=== PATIENT | male | born 1960 | race Caucasian/White ===

== ENCOUNTER 2022-08-06 09:20 | Outpatient (CLI) | payer BC | END 2022-08-06 09:21 | disposition home or self-care (01) | LOC: BICMAMMO 09:20 | PROVIDERS: ATTEND Family Medicine | DX: N63.11 Unspecified lump in the right breast, upper outer quadrant (principal) | CPT/HCPCS: 77066; G0279 ==

== ENCOUNTER 2023-01-30 20:55 | Emergency (ER) | payer BC ==
[2023-01-30 21:44] LABS: #Basophils 0.1 thou/uL (0.0-0.2); #Eosinphils 0.4 thou/uL (0.0-0.7); #Monocytes 0.7 thou/uL (0.11-0.59); #Neutrophils 8.5 thou/uL (1.40-6.50); %Basophils 0.4 % (0.0-1.0); %Eosinophils 3.9 % (0.0-10.0); %Lymphocytes 14.9 % (21.0-51.0); %Monocytes 5.8 % (0.0-10.0); %Neutrophils 74.6 % (42.0-75.0); Hematocrit 41.7 % (42.0-52.0); Hemoglobin 13.5 g/dL (14.0-18.0); Mean Corpuscular HGB CONC 32.4 g/dL (32.0-36.0); Mean Corpuscular Hemoglobin 27.3 pg (27.0-31.0); Mean Corpuscular Volume 84.2 fl (78.0-98.0); Mean Platelet Volume 10.7 fL (7.4-10.4); Platelet Count 250 10x3/uL (130-400); RBC Distribution Width 14.6 % (11.5-14.5); Red Blood Cell (RBC) Count 4.95 mill/uL (4.70-6.10); White Blood Cell (WBC) Count 11.4 10x3/uL (4.8-10.8)
[2023-01-30 22:03] LABS: SARS-CoV-2 NAA Rapid Test Not Detected (NotDetected)
[2023-01-30 22:12] LABS: ALT (SGPT) 48 U/L (8-55); AST (SGOT) 24 U/L (5-34); Alkaline Phosphatase 75 U/L (40-110); Anion Gap 13 mmol/L (10-20); BUN (Urea Nitrogen) 16 mg/dL (8.4-25.7); Calc. Creatinine Clearance 0 mL/min (70-130); Calcium 9.4 mg/dL (7.8-10.44); Carbon Dioxide 25 mmol/L (23-31); Chloride 103 mmol/L (98-107); Estimated GFR 78; Globulin 2.9 g/dL (2.4-3.5); Glucose 207 mg/dL (80-115); Lipase 50 U/L (8-78); Potassium 3.9 mmol/L (3.5-5.1); Protein, Total 6.9 g/dL (5.8-8.1); Sodium 137 mmol/L (136-145)
[2023-01-30 22:37] LABS: Bacteria/HPF None Seen HPF (None Seen); Bilirubin Negative (Negative); Blood, Urine Negative (Negative); CAUTI Indications for Culture Fever or rigors; Clarity Clear (Clear); Glucose, Urine (Dipstick) Greater than 1000 mg/dL (Negative); Ketone, Urine Trace mg/dL (Negative); Leukocyte Negative Leu/uL (Negative); Nitrite Negative (Negative); Protein, Urine (Dipstick) Negative (Neg-Trace); RBC/HPF 0-3 HPF (0-3); Specific Gravity, Urine 1.033 (1.002-1.036); Squamous Epithelial 0-3 HPF (0-3); Urobilinogen Normal mg/dL (Less than 2); WBC/HPF 0-3 HPF (0-3)
[2023-01-30 22:41] LABS: Urine Culture Reflex No No
== END 2023-01-30 23:19 | disposition home or self-care (01) ==
LOC: ERS 20:55
DX: B37.9 Candidiasis, unspecified (principal); R50.9 Fever, unspecified; E11.9 Type 2 diabetes mellitus without complications; I10 Essential (primary) hypertension; Z20.822 Contact with and (suspected) exposure to COVID-19
CPT/HCPCS: 36415; 80053; 81001; 83605; 83690; 85025; 99283

== ENCOUNTER 2024-11-17 23:22 | Inpatient (IN) | payer BC ==
[2024-11-18] MEDS ORDERED: Ketorolac Tromethamine 30 MG (1 mL) VIAL ONE ×2 (01:20→03:29)
[2024-11-18 01:26] LABS: #Basophils 0.05 10x3/uL (0.0-0.2); #Eosinophils 0.55 10x3/uL (0.0-0.7); #Monocytes 0.60 10x3/uL (0.11-0.59); #Neutrophils 4.75 10x3/uL (1.40-6.50); %Basophils 0.6 % (0.0-1.0); %Eosinophils 6.9 % (0.0-10.0); %Lymphocytes 24.8 % (21.0-51.0); %Monocytes 7.5 % (0.0-10.0); %Neutrophils 59.8 % (42.0-75.0); Hematocrit 44.0 % (42.0-52.0); Hemoglobin 13.8 g/dL (14.0-18.0); Mean Corpuscular Hemoglobin 25.8 pg (27.0-31.0); Mean Corpuscular Volume 82.2 fL (78.0-98.0); Platelet Count 260 10x3/uL (130-400); Red Blood Cell (RBC) Count 5.35 mill/uL (4.70-6.10); White Blood Cell (WBC) Count 7.95 10x3/uL (4.8-10.8)
[2024-11-18 01:43] LABS: ALT (SGPT) 62 U/L (Less than 45); AST (SGOT) 39 U/L (11-34); Albumin 3.9 g/dL (3.1-4.5); Alkaline Phosphatase 88 U/L (40-110); Anion Gap 17 mmol/L (10-20); BUN (Urea Nitrogen) 16 mg/dL (8.4-25.7); Bilirubin, Total 0.9 mg/dL (0.3-1.2); Calc. Creatinine Clearance 0 mL/min (70-130); Calcium 9.7 mg/dL (7.8-10.44); Carbon Dioxide 28 mmol/L (23-31); Chloride 96 mmol/L (98-107); Globulin 3.5 g/dL (2.4-3.5); Glucose 148 mg/dL (80-115); Lipase 22 U/L (8-78); Potassium 3.7 mmol/L (3.5-5.1); Sodium 137 mmol/L (136-145)
[2024-11-18] MEDS ORDERED: Dextrose 50% Abboject 50 ML SYRINGE SLOW IVP PRN (05:26)
[2024-11-18] MEDS ORDERED: Acetaminophen 325 MG TAB PO PRN (05:26)
[2024-11-18] MEDS ORDERED: Ondansetron PF 4 MG/2 ML Vial IVP PRN (05:26)
[2024-11-18] MEDS ORDERED: Glucagon 1 MG/ML KIT IM PRN (05:26)
[2024-11-18 09:08] VITALS: BMI 53.9
[2024-11-18] MEDS ORDERED: guaiFENesin/Codeine 200 mg/20 mg 10 ml Cup PO PRN (09:09)
[2024-11-18] MEDS: Pantoprazole 40 MG DR.TAB PO SCH (09:51)
[2024-11-18] MEDS: Metoprolol Succinate XL 50 MG ER.TAB PO SCH (09:51)
[2024-11-18] MEDS: metFORMIN 500 MG TAB PO SCH ×2 (09:51→17:04)
[2024-11-18] MEDS: Dapagliflozin Propanediol 10 MG TAB PO SCH (09:51)
[2024-11-18] MEDS: Methocarbamol 500 MG TAB PO SCH (09:51)
[2024-11-18] MEDS: Benzonatate 100 MG CAP PO SCH ×2 (09:52→10:52)
[2024-11-18] MEDS ORDERED: Iopamidol-370 76% 500 ML MDV (1 ML CHARGE) ONE (13:14)
[2024-11-18] MEDS: Acetaminophen 325 MG TAB PO SCH (17:05)
[2024-11-18] MEDS: Enoxaparin 60 MG (0.6 mL) SYRINGE SC SCH (20:22)
[2024-11-18] MEDS: Rosuvastatin 10 MG TAB PO SCH (20:22)
[2024-11-19 05:01] LABS: #Basophils 0.05 10x3/uL (0.0-0.2); #Eosinophils 0.41 10x3/uL (0.0-0.7); #Monocytes 0.46 10x3/uL (0.11-0.59); #Neutrophils 3.97 10x3/uL (1.40-6.50); %Basophils 0.8 % (0.0-1.0); %Eosinophils 6.5 % (0.0-10.0); %Lymphocytes 21.8 % (21.0-51.0); %Monocytes 7.3 % (0.0-10.0); %Neutrophils 63.3 % (42.0-75.0); Hematocrit 40.3 % (42.0-52.0); Hemoglobin 12.1 g/dL (14.0-18.0); Mean Corpuscular Hemoglobin 25.2 pg (27.0-31.0); Mean Corpuscular Volume 84.0 fL (78.0-98.0); Platelet Count 232 10x3/uL (130-400); Red Blood Cell (RBC) Count 4.80 mill/uL (4.70-6.10); White Blood Cell (WBC) Count 6.28 10x3/uL (4.8-10.8)
[2024-11-19 05:48] LABS: ALT (SGPT) 47 U/L (Less than 45); AST (SGOT) 22 U/L (11-34); Albumin 3.1 g/dL (3.1-4.5); Alkaline Phosphatase 72 U/L (40-110); Anion Gap 14 mmol/L (10-20); BUN (Urea Nitrogen) 15 mg/dL (8.4-25.7); Bilirubin, Total 0.5 mg/dL (0.3-1.2); Calc. Creatinine Clearance 274 mL/min (70-130); Calcium 8.6 mg/dL (7.8-10.44); Carbon Dioxide 22 mmol/L (23-31); Chloride 105 mmol/L (98-107); Globulin 2.8 g/dL (2.4-3.5); Glucose 164 mg/dL (80-115); Potassium 3.8 mmol/L (3.5-5.1); Sodium 137 mmol/L (136-145)
[2024-11-19 07:45] VITALS: BP 125/77; TEMP 97.9
== END 2024-11-19 12:49 | disposition home or self-care (01) | DRG 563 ==
LOC: ERS 23:22 → SURG A 11-18 05:34 → INTOOBSV 11-18 05:34 → OBSVTOIN 11-19 10:23
PROVIDERS: ADMIT Surgery Trauma Surgery; ATTEND Surgery Trauma Surgery
PROC: 5A09357 Assistance with Respiratory Ventilation, Less than 24 Consecutive Hours, Continuous Positive Airway Pressure (ICD-10-PCS; principal; 2024-11-19)
DX: S39.012A Strain of muscle, fascia and tendon of lower back, initial encounter (principal); R07.81 Pleurodynia; I10 Essential (primary) hypertension; E11.9 Type 2 diabetes mellitus without complications; Z90.13 Acquired absence of bilateral breasts and nipples; E66.01 Morbid (severe) obesity due to excess calories; K82.8 Other specified diseases of gallbladder; Z79.899 Other long term (current) drug therapy; Z79.4 Long term (current) use of insulin; R05.9 Cough, unspecified; E78.00 Pure hypercholesterolemia, unspecified; X58.XXXA Exposure to other specified factors, initial encounter
CPT/HCPCS: 36415; 36416; 71045; 71275; 74177; 76705; 80053; 83605; 83690; 83880; 85025; 93005; 93010; 96361; 96372; 96375; 96376; G0378; J1650; J1885; J2543; J7030; Q9967

== ENCOUNTER 2024-12-17 09:10 | Inpatient (IN) | payer BC ==
[2024-12-17] MEDS ORDERED: Ketorolac Tromethamine 30 MG (1 mL) VIAL ONE (09:48)
[2024-12-17] MEDS ORDERED: Ondansetron PF 4 MG/2 ML Vial IVP PRN (11:37)
[2024-12-17] MEDS ORDERED: hydrALAZINE 20 MG/ML VIAL SLOW IVP PRN (11:37)
[2024-12-17] MEDS ORDERED: Rib Fracture Protocol PO PRN (11:45)
[2024-12-17] MEDS ORDERED: Dextrose 50% Abboject 50 ML SYRINGE SLOW IVP PRN (12:25)
[2024-12-17] MEDS ORDERED: Glucagon 1 MG/ML KIT IM PRN (12:25)
[2024-12-17 12:29] LABS: Magnesium 1.7 mg/dL (1.6-2.6)
[2024-12-17] MEDS ORDERED: TETANUS AND DIPHTHERIA TOX/PF 0.5 ML DISP.SYRIN IM SCH (12:45)
[2024-12-17] MEDS: Methocarbamol 500 MG TAB PO SCH ×2 (13:28→20:32)
[2024-12-17] MEDS ORDERED: Acetaminophen 325 MG TAB PO SCH (14:00)
[2024-12-17 14:27] VITALS: BMI 53.9
[2024-12-17] MEDS: TETANUS AND DIPHTHERIA TOX/PF 0.5 ML DISP.SYRIN IM SCH (15:21)
[2024-12-17] MEDS: TETANUS, DIPHTHERIA TOX,ADULT (TDVAX) 0.5 ML VIAL IM ONE (15:21)
[2024-12-17] MEDS ORDERED: Ibuprofen 200 MG TAB ONE (15:23)
[2024-12-17] MEDS ORDERED: Gabapentin 300 MG CAP ONE (15:23)
[2024-12-17] MEDS: Ibuprofen 200 MG TAB PO SCH (15:24)
[2024-12-17] MEDS: Gabapentin 300 MG CAP PO SCH (15:26)
[2024-12-17] MEDS: Acetaminophen 500 MG TAB PO SCH (17:43)
[2024-12-17] MEDS: Magnesium Oxide 400 MG TAB PO SCH (17:44)
[2024-12-17 17:48] LABS: #Basophils 0.05 10x3/uL (0.0-0.2); #Eosinophils 0.32 10x3/uL (0.0-0.7); #Monocytes 0.62 10x3/uL (0.11-0.59); #Neutrophils 8.38 10x3/uL (1.40-6.50); %Basophils 0.5 % (0.0-1.0); %Eosinophils 2.9 % (0.0-10.0); %Lymphocytes 13.7 % (21.0-51.0); %Monocytes 5.7 % (0.0-10.0); %Neutrophils 76.7 % (42.0-75.0); Hematocrit 44.5 % (42.0-52.0); Hemoglobin 13.8 g/dL (14.0-18.0); Mean Corpuscular Hemoglobin 25.7 pg (27.0-31.0); Mean Corpuscular Volume 82.7 fL (78.0-98.0); Platelet Count 257 10x3/uL (130-400); Red Blood Cell (RBC) Count 5.38 mill/uL (4.70-6.10); White Blood Cell (WBC) Count 10.91 10x3/uL (4.8-10.8)
[2024-12-17 18:06] LABS: ALT (SGPT) 63 U/L (Less than 45); AST (SGOT) 36 U/L (11-34); Albumin 3.8 g/dL (3.1-4.5); Alkaline Phosphatase 82 U/L (40-110); Anion Gap 19 mmol/L (10-20); BUN (Urea Nitrogen) 20 mg/dL (8.4-25.7); Bilirubin, Total 0.8 mg/dL (0.3-1.2); Calc. Creatinine Clearance 193 mL/min (70-130); Calcium 9.6 mg/dL (7.8-10.44); Carbon Dioxide 25 mmol/L (23-31); Chloride 97 mmol/L (98-107); Globulin 3.3 g/dL (2.4-3.5); Glucose 226 mg/dL (80-115); Potassium 4.3 mmol/L (3.5-5.1); Sodium 137 mmol/L (136-145)
[2024-12-17] MEDS: Enoxaparin 40 MG (0.4 mL) SYRINGE SC SCH (20:30)
[2024-12-17] MEDS: Metoprolol Succinate XL 50 MG ER.TAB PO SCH (20:32)
[2024-12-17] MEDS: Rosuvastatin 10 MG TAB PO SCH (20:32)
[2024-12-17] MEDS: metFORMIN 500 MG TAB PO SCH (20:32)
[2024-12-17] MEDS: Senokot 8.6 MG TAB PO SCH (20:34)
[2024-12-17] MEDS: Insulin Glargine 30 UNITS/0.3 ML VIAL SC SCH (20:44)
[2024-12-18] MEDS: oxyCODONE 5 MG TAB PO PRN (02:38)
[2024-12-18 04:07] LABS: #Basophils 0.04 10x3/uL (0.0-0.2); #Eosinophils 0.40 10x3/uL (0.0-0.7); #Monocytes 0.69 10x3/uL (0.11-0.59); #Neutrophils 5.00 10x3/uL (1.40-6.50); %Basophils 0.5 % (0.0-1.0); %Eosinophils 5.1 % (0.0-10.0); %Lymphocytes 21.6 % (21.0-51.0); %Monocytes 8.8 % (0.0-10.0); %Neutrophils 63.6 % (42.0-75.0); Hematocrit 41.3 % (42.0-52.0); Hemoglobin 12.6 g/dL (14.0-18.0); Mean Corpuscular Hemoglobin 25.5 pg (27.0-31.0); Mean Corpuscular Volume 83.4 fL (78.0-98.0); Platelet Count 238 10x3/uL (130-400); Red Blood Cell (RBC) Count 4.95 mill/uL (4.70-6.10); White Blood Cell (WBC) Count 7.86 10x3/uL (4.8-10.8)
[2024-12-18 04:25] LABS: ALT (SGPT) 51 U/L (Less than 45); AST (SGOT) 22 U/L (11-34); Albumin 3.4 g/dL (3.1-4.5); Alkaline Phosphatase 74 U/L (40-110); Anion Gap 16 mmol/L (10-20); BUN (Urea Nitrogen) 25 mg/dL (8.4-25.7); Bilirubin, Total 0.5 mg/dL (0.3-1.2); Calc. Creatinine Clearance 202 mL/min (70-130); Calcium 9.0 mg/dL (7.8-10.44); Carbon Dioxide 25 mmol/L (23-31); Chloride 99 mmol/L (98-107); Globulin 2.9 g/dL (2.4-3.5); Glucose 241 mg/dL (80-115); Magnesium 2.0 mg/dL (1.6-2.6); Potassium 3.5 mmol/L (3.5-5.1); Sodium 136 mmol/L (136-145)
[2024-12-18] MEDS: Pantoprazole 40 MG DR.TAB PO SCH (11:03)
[2024-12-18] MEDS: Lisinopril 20 MG TAB PO SCH (11:03)
[2024-12-18] MEDS: Dapagliflozin Propanediol 10 MG TAB PO SCH (11:14)
[2024-12-18] MEDS: Electrolyte Replacement Protocol 1 EACH FS ONE (12:27)
[2024-12-19 05:11] LABS: #Basophils 0.04 10x3/uL (0.0-0.2); #Eosinophils 0.43 10x3/uL (0.0-0.7); #Monocytes 0.58 10x3/uL (0.11-0.59); #Neutrophils 5.76 10x3/uL (1.40-6.50); %Basophils 0.5 % (0.0-1.0); %Eosinophils 5.3 % (0.0-10.0); %Lymphocytes 16.3 % (21.0-51.0); %Monocytes 7.1 % (0.0-10.0); %Neutrophils 70.6 % (42.0-75.0); Hematocrit 41.0 % (42.0-52.0); Hemoglobin 12.7 g/dL (14.0-18.0); Mean Corpuscular Hemoglobin 25.6 pg (27.0-31.0); Mean Corpuscular Volume 82.5 fL (78.0-98.0); Platelet Count 228 10x3/uL (130-400); Red Blood Cell (RBC) Count 4.97 mill/uL (4.70-6.10); White Blood Cell (WBC) Count 8.16 10x3/uL (4.8-10.8)
[2024-12-19 05:17] LABS: ALT (SGPT) 50 U/L (Less than 45); AST (SGOT) 25 U/L (11-34); Albumin 3.4 g/dL (3.1-4.5); Alkaline Phosphatase 79 U/L (40-110); Anion Gap 18 mmol/L (10-20); BUN (Urea Nitrogen) 20 mg/dL (8.4-25.7); Bilirubin, Total 0.6 mg/dL (0.3-1.2); Calc. Creatinine Clearance 172 mL/min (70-130); Calcium 9.4 mg/dL (7.8-10.44); Carbon Dioxide 24 mmol/L (23-31); Chloride 96 mmol/L (98-107); Globulin 3.1 g/dL (2.4-3.5); Glucose 208 mg/dL (80-115); Potassium 4.1 mmol/L (3.5-5.1); Sodium 134 mmol/L (136-145)
[2024-12-19] MEDS: Naloxegol 12.5 MG TAB PO SCH (15:21)
[2024-12-19 16:33] VITALS: TEMP 98.2
[2024-12-19 18:16] VITALS: BP 124/70
[2024-12-20] MEDS ORDERED: Naloxegol 12.5 MG TAB PO SCH (07:30)
[2024-12-20] MEDS ORDERED: metFORMIN 500 MG TAB PO SCH (08:00)
== END 2024-12-19 18:05 | disposition home or self-care (01) | DRG 552 ==
LOC: ERS 09:10 → INTOOBSV 11:47 → ERHOLD 11:47 → SURG A 16:06 → OBSVTOIN 12-19 07:28
PROVIDERS: ADMIT Surgery; ATTEND Surgery
DX: S22.088A Other fracture of T11-T12 vertebra, initial encounter for closed fracture (principal); S22.31XA Fracture of one rib, right side, initial encounter for closed fracture; I10 Essential (primary) hypertension; E78.5 Hyperlipidemia, unspecified; E11.9 Type 2 diabetes mellitus without complications; Z79.899 Other long term (current) drug therapy; W19.XXXA Unspecified fall, initial encounter; E83.42 Hypomagnesemia; K21.9 Gastro-esophageal reflux disease without esophagitis; K59.09 Other constipation
CPT/HCPCS: 36415; 36416; 71250; 72128; 80053; 83036; 83735; 84100; 85025; 94640; 96372; 96374; 96375; G0378; G0390; J1650; J1815; J1885; J2270

== ENCOUNTER 2024-12-20 10:39 | Outpatient (CLI) | payer BC | END 2024-12-20 10:40 | disposition home or self-care (01) | LOC: BICRAD 10:39 | PROVIDERS: ATTEND Family Medicine | DX: R07.89 Other chest pain (principal) | CPT/HCPCS: 71046 ==

== ENCOUNTER 2024-12-22 11:36 | Emergency (ER) | payer BC ==
[2024-12-22 12:38] LABS: #Basophils 0.04 10x3/uL (0.0-0.2); #Eosinophils 0.42 10x3/uL (0.0-0.7); #Monocytes 0.54 10x3/uL (0.11-0.59); #Neutrophils 5.79 10x3/uL (1.40-6.50); %Basophils 0.5 % (0.0-1.0); %Eosinophils 5.1 % (0.0-10.0); %Lymphocytes 17.4 % (21.0-51.0); %Monocytes 6.5 % (0.0-10.0); %Neutrophils 70.1 % (42.0-75.0); Hematocrit 42.4 % (42.0-52.0); Hemoglobin 13.7 g/dL (14.0-18.0); Mean Corpuscular Hemoglobin 25.6 pg (27.0-31.0); Mean Corpuscular Volume 79.1 fL (78.0-98.0); Platelet Count 287 10x3/uL (130-400); Red Blood Cell (RBC) Count 5.36 mill/uL (4.70-6.10); White Blood Cell (WBC) Count 8.26 10x3/uL (4.8-10.8)
[2024-12-22 13:06] LABS: ALT (SGPT) 35 U/L (Less than 45); AST (SGOT) 24 U/L (11-34); Albumin 3.7 g/dL (3.1-4.5); Alkaline Phosphatase 82 U/L (40-110); Anion Gap 15 mmol/L (10-20); BUN (Urea Nitrogen) 19 mg/dL (8.4-25.7); Bilirubin, Total 0.9 mg/dL (0.3-1.2); Calc. Creatinine Clearance 0 mL/min (70-130); Calcium 9.2 mg/dL (7.8-10.44); Carbon Dioxide 26 mmol/L (23-31); Chloride 98 mmol/L (98-107); Globulin 3.7 g/dL (2.4-3.5); Glucose 140 mg/dL (80-115); Lipase 17 U/L (8-78); Potassium 4.0 mmol/L (3.5-5.1); Sodium 135 mmol/L (136-145)
[2024-12-22] MEDS ORDERED: Ondansetron PF 4 MG/2 ML Vial ONE (13:16)
[2024-12-22 13:58] LABS: CAUTI Indications for Culture Dysuria,urgency,freq; Glucose, Urine (Dipstick) Greater than 1000 mg/dL (Negative); Leukocyte Negative Leu/uL (Negative); Protein, Urine (Dipstick) Negative (Neg-Trace); RBC/HPF 0-3 HPF (0-3); Specific Gravity, Urine 1.024 (1.002-1.036); WBC/HPF 0-3 HPF (0-3)
[2024-12-22 13:59] LABS: Bacteria/HPF 1+ HPF (None Seen); Urine Culture Reflex No No
[2024-12-22] MEDS ORDERED: Gabapentin 300 MG CAP ONE (19:51)
[2024-12-22] MEDS ORDERED: HYDROmorphone 0.5 MG/0.5 ML SYRINGE ONE (19:51)
[2024-12-22] MEDS ORDERED: Ketorolac Tromethamine 30 MG (1 mL) VIAL ONE (19:51)
== END 2024-12-23 01:06 | disposition short-term general hospital (02) ==
LOC: ERS 11:36
DX: S22.089A Unspecified fracture of T11-T12 vertebra, initial encounter for closed fracture (principal); K59.00 Constipation, unspecified; G83.4 Cauda equina syndrome; E11.9 Type 2 diabetes mellitus without complications; I10 Essential (primary) hypertension; E78.00 Pure hypercholesterolemia, unspecified; W19.XXXA Unspecified fall, initial encounter; Z79.84 Long term (current) use of oral hypoglycemic drugs; Z79.4 Long term (current) use of insulin; Z79.899 Other long term (current) drug therapy
CPT/HCPCS: 72128; 72131; 80053; 81001; 83690; 85025; 96374; 96375; 96376; J1171; J1885; J2270; J2405